=== PATIENT | female | born 1995 | race Hispanic/Latino ===

== ENCOUNTER 2022-01-18 11:59 | Observation (INO) | payer BC ==
[~2022-01-18] VITALS: Ht 162.6 cm; Wt 89.8 kg
[2022-01-18] MEDS ORDERED: SODIUM CHLORIDE 0.9% 1000ML 1,000 ML IV STA (13:12)
[2022-01-18] MEDS ORDERED: Vancomycin IV 1 GM in SODIUM CHLORIDE 0.9% 250ML 250 ML IV ONE (13:15)
[2022-01-18] MEDS ORDERED: CEFEPIME 2 GM in SODIUM CHLORIDE 0.9% 100 ML IV ONE (13:15)
[2022-01-18 13:29] LABS: BASOPHILS % 0.3 % (0.0-1.0); EOSINOPHILS % 0.5 % (0.0-6.0); HEMATOCRIT 42.2 % (34.2-44.1); HEMOGLOBIN 13.8 g/dL (12.0-16.0); LYMPHOCYTES # (AUTO) 1.6 (1.0-3.2); LYMPHOCYTES % 17.9 % (18.0-39.1); MEAN CORPUSCULAR HEMOGLOBIN 30.1 pg (28-32); MEAN CORPUSCULAR HGB CONC 32.7 g/dL (31-35); MEAN CORPUSCULAR VOLUME 92.1 fL (81-99); MONOCYTES # (AUTO) 0.5 (0.2-0.8); MONOCYTES % 5.7 % (4.4-11.3); NEUTROPHILS # (AUTO) 6.6 (2.1-6.9); NEUTROPHILS % 75.3 % (38.7-80.0); PLATELET COUNT 222 x10e3/uL (140-360); RED BLOOD COUNT 4.58 x10e6/uL (3.6-5.1)
[2022-01-18 13:46] LABS: INR 0.95; PROTHROMBIN TIME 13.5 seconds (11.9-14.5)
[2022-01-18 13:47] LABS: PARTIAL THROMBOPLASTIN TIME 27.5 seconds (23.8-35.5)
[2022-01-18 13:54] LABS: ALANINE AMINOTRANSFERASE 65 IU/L (0-55); ALBUMIN 4.1 g/dL (3.5-5.0); ALBUMIN/GLOBULIN RATIO 0.9 (0.8-2.0); ALKALINE PHOSPHATASE 66 IU/L (40-150); ANION GAP 16.4 mmol/L (8-16); BLOOD UREA NITROGEN 10 mg/dL (7-26); BUN/CREATININE RATIO 12 (6-25); CALCIUM 9.3 mg/dL (8.4-10.2); CARBON DIOXIDE 23 mmol/L (22-29); CHLORIDE 103 mmol/L (98-107); CREATININE, SERUM 0.86 mg/dL (0.57-1.11); EST GLOMERULAR FILTRATION RATE 79 ML/MIN (60-); GLUCOSE 83 mg/dL (74-118); POTASSIUM 3.4 mmol/L (3.5-5.1); SODIUM 139 mmol/L (136-145)
[2022-01-18 14:13] LABS: CLARITY,URINE CLEAR (CLEAR); COLOR,URINE YELLOW (YELLOW)
[2022-01-18 14:14] LABS: KETONES,URINE NEGATIVE (NEGATIVE); LEUKOCYTE ESTERASE ,URINE NEGATIVE (NEGATIVE); NITRITE,URINE NEGATIVE (NEGATIVE); PROTEIN,URINE DIPSTICK NEGATIVE (NEGATIVE); URINE UROBILINOGEN 0.2 mg/dL (0.2 - 1)
[2022-01-18 14:19] LABS: BACTERIA,URINE MODERATE /HPF; EPITHELIAL CELLS,URINE MODERATE /LPF; MUCUS,URINE FEW (RARE); RBC,URINE 0-5 /HPF (0-5)
[2022-01-18] MEDS ORDERED: IOPAMIDOL 370 MG/ML 100 ML INFUS..BTL INJ ONE (14:41)
[2022-01-18] MEDS ORDERED: LABETALOL HCL 5 MG/ML 20ML VIAL IV NR (16:51)
[2022-01-18 17:01] LABS: AMPHETAMINES SCREEN,URINE NEGATIVE (NEGATIVE); BENZODIAZEPINES SCREEN,URINE NEGATIVE (NEGATIVE); PHENCYCLIDINE SCREEN,URINE NEGATIVE (NEGATIVE)
[2022-01-18] MEDS ORDERED: Morphine 4mg Syringe 4 MG/ML INJ IV PRN (18:30)
[2022-01-18] MEDS ORDERED: ONDANSETRON HCL INJ 2MG/ML 2ML 2 MG/ML VIAL IV PRN (18:30)
[2022-01-18] MEDS ORDERED: LABETALOL HCL 5 MG/ML 20ML VIAL IV PRN (18:30)
[2022-01-18] MEDS: SODIUM CHLORIDE 0.9% 1000ML 1,000 ML IV SCH (18:45)
[2022-01-18] MEDS ORDERED: POTASSIUM CHLORIDE 20 MEQ TAB CR PO STA (18:57)
[2022-01-18 20:12] LABS: FREE THYROXINE INDEX 2.1001 (1.4-3.8); THYROID STIMULATING HORMONE 0.935 uIU/mL (0.350-4.940)
[2022-01-18] MEDS ORDERED: LOSARTAN POTASS25 MG PO (20:41)
[2022-01-18] MEDS ORDERED: HYDROCHLOROTHIA25 MG (20:41)
[2022-01-18 21:08] VITALS: BP 150/107
[2022-01-18] MEDS: CEFEPIME 2 GM in SODIUM CHLORIDE 0.9% 100 ML IV SCH (21:42)
[2022-01-19] VITALS (8 sets, daily range): BP systolic 138–151; BP diastolic 83–107
[2022-01-19 00:33] LABS: CREATINE KINASE 42 IU/L (29-168)
[2022-01-19] MEDS: SODIUM CHLORIDE 0.9% 1000ML 1,000 ML IV SCH ×2 (03:20→10:30)
[2022-01-19] MEDS: CEFEPIME 2 GM in SODIUM CHLORIDE 0.9% 100 ML IV SCH (04:40)
[2022-01-19 05:36] LABS: BASOPHILS % 0.2 % (0.0-1.0); EOSINOPHILS # (AUTO) 0.1 (0.0-0.4); EOSINOPHILS % 0.8 % (0.0-6.0); HEMATOCRIT 38.9 % (34.2-44.1); HEMOGLOBIN 12.4 g/dL (12.0-16.0); LYMPHOCYTES # (AUTO) 1.4 (1.0-3.2); LYMPHOCYTES % 22.4 % (18.0-39.1); MEAN CORPUSCULAR HEMOGLOBIN 30.2 pg (28-32); MEAN CORPUSCULAR HGB CONC 31.9 g/dL (31-35); MEAN CORPUSCULAR VOLUME 94.9 fL (81-99); MONOCYTES # (AUTO) 0.5 (0.2-0.8); MONOCYTES % 8.1 % (4.4-11.3); NEUTROPHILS # (AUTO) 4.4 (2.1-6.9); NEUTROPHILS % 68.3 % (38.7-80.0); PLATELET COUNT 193 x10e3/uL (140-360); RED CELL DISTRIBUTION WIDTH 13.2 % (11.7-14.4)
[2022-01-19 05:53] LABS: CREATINE KINASE 45 IU/L (29-168)
[2022-01-19 06:00] LABS: ALBUMIN 3.4 g/dL (3.5-5.0); ALBUMIN/GLOBULIN RATIO 0.9 (0.8-2.0); ANION GAP 12.5 mmol/L (8-16); CALCIUM 8.7 mg/dL (8.4-10.2); CREATININE, SERUM 0.86 mg/dL (0.57-1.11); POTASSIUM 3.5 mmol/L (3.5-5.1)
[2022-01-19] MEDS ORDERED: CEPHALEXIN 500 MG CAP PO SCH (08:30)
[2022-01-19] MEDS ORDERED: TRIMETHOPRIM/SULFAMETHOXAZOLE 160-800 MG TAB PO SCH (09:00)
[2022-01-19] MEDS: CEPHALEXIN 500 MG CAP PO SCH ×2 (10:00→12:00)
[2022-01-19] MEDS ORDERED: LOSARTAN POTASS25 MG PO (13:30)
[2022-01-19] MEDS ORDERED: BACTRIM DS TAB1 EACH PO (13:30)
[2022-01-19] MEDS ORDERED: CEPHALEXIN500 MG PO (13:30)
[2022-01-19] MEDS ORDERED: HYDROCHLOROTHIA25 MG PO (13:30)
[2022-01-19] MEDS ORDERED: DEXTROSE 5% IV SCH (14:00)
[2022-01-19] MEDS ORDERED: CLINDAMYCIN IV SCH (14:00)
[2022-01-19] MEDS ORDERED: ONDANSETRON HCL 4 MG ORAL DISINTEGRATING TAB PO PRN (14:30)
[2022-01-19 14:48] LABS: CREATINE KINASE 45 IU/L (29-168)
== END 2022-01-19 16:15 | disposition home or self-care (01) ==
LOC: ER 12:56 → ERHOLD 18:28 → INTOOBSV 18:28 → MED/SURG 19:25
PROVIDERS: ADMIT Internal Medicine; ATTEND Internal Medicine
DX: L03.311 Cellulitis of abdominal wall (principal); I16.0 Hypertensive urgency; I10 Essential (primary) hypertension; E66.9 Obesity, unspecified; F43.10 Post-traumatic stress disorder, unspecified; Z68.34 Body mass index [BMI] 34.0-34.9, adult; Z88.1 Allergy status to other antibiotic agents; L40.9 Psoriasis, unspecified; Z88.0 Allergy status to penicillin; Z20.822 Contact with and (suspected) exposure to COVID-19
CPT/HCPCS: 36415 ×2; 71045; 74177; 80053 ×2; 80307; 81001; 81025; 82550; 82553; 83605; 83735; 84436; 84443; 84479; 84484; 84702; 85025 ×2; 85610; 85730; 87040; 87086; 93005; 99283; G0378 ×2; J0692 ×2; J2270; J2405; J3370; J3490; J7030 ×2; J7050 ×3; Q9967; U0002